=== PATIENT | male | born 1945 | race American Indian/Alaskan Native ===

== ENCOUNTER 2019-11-23 09:58 | Emergency (ER) | payer MEDICARE ==
[2019-11-23 10:05] VITALS: BP 164/84
--- NOTE | 2019-11-23 13:35 | Event Note ---
ED Screening Note Date of service: 11/23/19 Time: 13:34 ED Screening Note: 74-year-old male presents the ED stating that he found aorta score with positive on Wednesday presented with shortness of breath and chest pain This initial assessment/diagnostic orders/clinical plan/treatment(s) is/are sub ject to change based on patients health status, clinical progression and re- assessment by fellow clinical providers in the ED. Further treatment and workup at subsequent clinical providers discretion. Patient/guardian urged not to elope from the ED as their condition may be serious if not clinically assessed and managed. Initial orders include: COVID labs, chest x-ray, Main side eval
--- NOTE | 2019-11-23 14:46 | XRay Report ---
CHEST 2 VIEWS INDICATION: Short of breath. COMPARISON: None FINDINGS: Support devices: None. Heart: Within normal limits. Lungs/pleura: No acute air space or interstitial disease. No pneumothorax. Additional findings: None. IMPRESSION: No acute findings. Signer Name: Tomy Sevilla Jr, MD Signed: 11/23/2019 2:42 PM Workstation Name: [id number]
[2019-11-23 15:56] LABS: C-Reactive Protein 0.1 mg/dL (0.00-1.30)
[2019-11-23] MEDS ORDERED: SODIUM CHLORIDE 0.9% 1000 ML 1,000 ML IV ONE (17:13)
--- NOTE | 2019-11-23 17:16 | Emergency Department Report ---
ED General Adult HPI - General Chief complaint: Medical Clearance Stated complaint: COVID + Time Seen by Provider: 11/23/19 16:21 Source: patient Mode of arrival: Ambulatory Limitations: No Limitations - History of Present Illness Initial comments: Mr. Gorman is a 74 years old pleasant male with no significant past medical history according to his report. Patient presented to the ER stating that he has been tested positive for COVID-19 on Wednesday after 1 of his roommate tested positive. Patient stated that he was coughing at that time but denying any shortness of breath, fever or chills. Patient also denied any nausea, vomiting or diarrhea. - Related Data Allergies Allergy/AdvReac Type Severity Reaction Status Date / Time No Known Allergies Allergy Unverified 11/23/19 10:01 ED Review of Systems ROS: Stated complaint: COVID + Other details as noted in HPI Comment: All other systems reviewed and negative Constitutional: denies: chills, fever Respiratory: cough, shortness of breath. denies: orthopnea, SOB with exertion, SOB at rest, wheezing Cardiovascular: denies: chest pain, palpitations Gastrointestinal: denies: abdominal pain, nausea, vomiting, diarrhea, constipation, hematemesis, melena, hematochezia Musculoskeletal: denies: back pain Neurological: denies: headache, weakness, numbness, paresthesias, confusion ED Past Medical Hx - Past Medical History Previous Medical History?: No - Surgical History Past Surgical History?: No - Social History Smoking Status: Never Smoker Substance Use Type: None ED Physical Exam - General Limitations: No Limitations General appearance: alert, in no apparent distress - Head Head exam: Present: atraumatic, normocephalic, normal inspection - Eye Eye exam: Present: normal appearance - ENT ENT exam: Present: normal exam, normal orophraynx, mucous membranes moist - Neck Neck exam: Present: normal inspection, full ROM. Absent: tenderness, meningismus, lymphadenopathy, thyromegaly - Respiratory Respiratory exam: Present: normal lung sounds bilaterally - Cardiovascular Cardiovascular Exam: Present: regular rate, normal rhythm, normal heart sounds - GI/Abdominal GI/Abdominal exam: Present: soft, normal bowel sounds. Absent: distended, tenderness, guarding, rebound, rigid, organomegaly, mass, bruit, pulsatile mass, hernia - Back Exam Back exam: Present: normal inspection, full ROM. Absent: CVA tenderness (R), CVA tenderness (L) - Neurological Exam Neurological exam: Present: alert, oriented X3, CN II-XII intact. Absent: motor sensory deficit - Psychiatric Psychiatric exam: Present: normal mood - Skin Skin exam: Present: warm, intact, normal color ED Course Vital Signs 11/23/19 10:01 Temperature 98.4 F Pulse Rate 73 Respiratory 17 Rate Blood Pressure 164/84 O2 Sat by Pulse 96 Oximetry ED Medical Decision Making - Lab Data Result diagrams: 11/23/19 17:47 11/23/19 17:47 - Radiology Data Radiology results: report reviewed - Medical Decision Making Mr. Gorman is a 74 years old pleasant male with no significant past medical history according to his report. Patient presented to the ER stating that he has been tested positive for COVID-19 on Wednesday after 1 of his roommate tested positive. Patient stated that he was coughing at that time but denying any shortness of breath, fever or chills. Patient also denied any nausea, vomiting or diarrhea. Patient remained stable in the emergency room with a stable vital signs. Patient oxygen saturation remained 100% on room air. Labs reviewed and showed slightly elevated d-dimer. CTA chest is negative for PE or any other abnormalities. Patient advised to do a self quarantine and given instruction about COVID-19 and advised to follow-up with his primary care physician in the next 2 to 3 days and to return to the ER if he develop any new symptoms. Critical care attestation.: If time is entered above; I have spent that time in minutes in the direct care of this critically ill patient, excluding procedure time. ED Disposition Clinical Impression: COVID-19 Disposition: - TO HOME OR SELFCARE Is pt being admited?: No Condition: Stable Instructions: COVID-19 Referrals: PRIMARY CARE, [Primary Care Provider] - 3-5 Days
[2019-11-23 18:28] LABS: Basophils % (Auto) 0.7 % (0.0-1.8); Eosinophils # (Auto) 0.1 K/mm3 (0.0-0.4); Hematocrit 39.2 % (35.5-45.6); Hemoglobin 12.8 gm/dl (11.8-15.2); Lymphocytes # (Auto) 0.9 K/mm3 (1.2-5.4); Lymphocytes % (Auto) 31.1 % (13.4-35.0); Mean Corpuscular HGB Conc 33 % (32-34); Mean Corpuscular Volume 84 fl (84-94); Monocytes # (Auto) 0.4 K/mm3 (0.0-0.8); Monocytes % (Auto) 14.8 % (0.0-7.3); Platelet Count 155 K/mm3 (140-440); Red Blood Count 4.66 M/mm3 (3.65-5.03); Red Cell Distribution Width 16.4 % (13.2-15.2)
[2019-11-23 18:38] LABS: Alanine Aminotransferase 54 units/L (7-56); Albumin 3.8 g/dL (3.9-5); BUN/Creatinine Ratio 9; Blood Urea Nitrogen 8 mg/dL (9-20); Calcium 8.7 mg/dL (8.4-10.2); Hemolysis Index 4
[2019-11-23 18:40] LABS: INR 0.92 (0.87-1.13)
[2019-11-23 18:41] LABS: Partial Thromboplastin Time 25.7 Sec. (24.2-36.6)
[2019-11-23 19:03] LABS: Bilirubin,Direct < 0.2 mg/dL (0-0.2)
--- NOTE | 2019-11-23 20:57 | Cat Scan Report ---
CTA CHEST WITH IV CONTRAST INDICATION / CLINICAL INFORMATION: elevated d-dimer, SOB. TECHNIQUE: Axial CT images were obtained through the chest after injection of 100 mL Omnipaque 350 IV contrast. 3 plane MIP and/or 3D reconstructions were produced. All CT scans at this location are performed usin g CT dose reduction for DOMINGORA by means of automated exposure control. COMPARISON: None available. FINDINGS: PULMONARY ARTERIES: No pulmonary emboli. THORACIC AORTA: No significant abnormality. HEART: No significant abnormality. CORONARY ARTERIES: No significant calcification. PLEURA: No pleural effusion. No pneumothorax. LYMPH NODES: No significant adenopathy. LUNGS: No acute air space or interstitial disease. ADDITIONAL FINDINGS: There is a 1.3 cm nodule in the left lobe of the thyroid, statistically benign. UPPER ABDOMEN: No acute findings. SKELETAL STRUCTURES: No significant osseous abnormality. IMPRESSION: 1. No CT evidence for pulmonary embolism. 2. No acute findings. Signer Name: Lubna Mitchell MD Signed: 11/23/2019 8:52 PM Workstation Name: [id number]
== END 2019-11-23 21:45 | disposition home or self-care (01) ==
LOC: ED 09:58
DX: U07.1 COVID-19 (principal); R05 Cough
CPT/HCPCS: 36415; 71046; 71275; 80048; 80076; 82728; 82947; 83615; 84145; 85025; 85379; 85610; 85730; 86140; 96360; 96361; 99284; J7030; Q9967

== ENCOUNTER 2019-11-30 20:39 | Emergency (ER) | payer MEDICARE ==
[2019-11-30 20:58] VITALS: BP 143/78
== END 2019-11-30 21:30 | disposition left against medical advice (07) ==
LOC: ED 20:39
DX: U07.1 COVID-19 (principal); Z53.21 Procedure and treatment not carried out due to patient leaving prior to being seen by health care provider

== ENCOUNTER 2019-12-01 04:43 | Emergency (ER) | payer MEDICARE ==
[2019-12-01 04:56] VITALS: BP 138/76
--- NOTE | 2019-12-01 08:20 | Emergency Department Report ---
ED Medical Clearance HPI - General Chief complaint: Medical Clearance Stated complaint: MEDICAL CLEARANCE Time Seen by Provider: 12/01/19 08:16 Source: patient Mode of arrival: Ambulatory - History of Present Illness Initial comments: 74-year-old -[place] male presents to the emergency room here for checkup. Patient reports that he tested positive for COVID-19 2 weeks ago and is here to get a checkup. Patient is brought in by his correction. Patient denies any shortness of breath no cough no fever no nausea no vomiting no diarrhea abdominal pain. Patient states he feels much better. Patient denies any past medical history of diabetes hypertension or cardiac disease. Reason for Medical Clearance: medical condition Associated Symptoms: denies other symptoms. denies: chest pain, shortness of breath, palpitations, cough, fever/chills, headaches, weakness Treatments Prior to Arrival: none Allergies/Adverse reactions: Allergies Allergy/AdvReac Type Severity Reaction Status Date / Time No Known Allergies Allergy Unverified 11/23/19 10:01 ED Review of Systems ROS: Stated complaint: MEDICAL CLEARANCE Other details as noted in HPI Comment: All other systems reviewed and negative ED Past Medical Hx - Past Medical History Previous Medical History?: No - Surgical History Past Surgical History?: No - Social History Smoking Status: Current Every Day Smoker Substance Use Type: None ED Physical Exam - General Limitations: No Limitations General appearance: alert, in no apparent distress - Head Head exam: Present: atraumatic, normocephalic - Eye Eye exam: Present: normal appearance - ENT ENT exam: Present: mucous membranes moist - Neck Neck exam: Present: normal inspection, full ROM - Respiratory Respiratory exam: Present: normal lung sounds bilaterally. Absent: respiratory distress - Cardiovascular Cardiovascular Exam: Present: regular rate, normal rhythm. Absent: systolic murmur, diastolic murmur, rubs, gallop - GI/Abdominal GI/Abdominal exam: Present: soft, normal bowel sounds. Absent: distended, tenderness - Back Exam Back exam: Present: normal inspection, full ROM - Neurological Exam Neurological exam: Present: alert, normal gait - Psychiatric Psychiatric exam: Present: normal affect, normal mood - Skin Skin exam: Present: warm, dry, intact, normal color. Absent: rash ED Course Vital Signs 12/01/19 12/01/19 04:50 04:54 Temperature 98.6 F 98.6 F Pulse Rate 88 Respiratory 20 20 Rate Blood Pressure 138/76 O2 Sat by Pulse 95 Oximetry ED Medical Decision Making - Medical Decision Making 74-year-old -[place] male presents to the emergency room here for checkup. Patient reports that he tested positive for COVID-19 2 weeks ago and is here to get a checkup. Patient is brought in by his correction. Patient denies any shortness of breath no cough no fever no nausea no vomiting no diarrhea abdominal pain. Patient states he feels much better. Patient denies any past medical history of diabetes hypertension or cardiac disease. Patient denies any acute symptoms. Exam was within normal limits. Signs are within normal limits. Patient will be able to be discharged back to his correction. Instructed to follow-up with a primary care provider. ED Disposition Clinical Impression: Worried well Disposition: DC-01 TO HOME OR SELFCARE Is pt being admited?: No Does the pt Need Aspirin: No Condition: Stable Additional Instructions: Patient has a normal examination vital signs are stable. Patient is instructed to follow back up at his correction and follow-up with a primary care provider. I have listed information below for his convenience. Referrals: MCKENZIE LUO MD [Primary Care Provider] - 3-5 Days ISRAEL TOVAR MD [Staff Physician] - 3-5 Days
== END 2019-12-01 08:45 | disposition home or self-care (01) ==
LOC: ED 04:43
DX: U07.1 COVID-19 (principal); F17.200 Nicotine dependence, unspecified, uncomplicated; Z71.1 Person with feared health complaint in whom no diagnosis is made

== ENCOUNTER 2020-06-22 18:31 | Inpatient (IN) | payer MEDICARE ==
[2020-06-22] MEDS ORDERED: SODIUM CHLORIDE 0.9% 1000 ML 1,000 ML IV ONE (18:46)
[2020-06-22] MEDS ORDERED: levETIRAcetam 1000 MG/NS 0.75% 1,000 MG/100 ML BAG IV ONE (18:47)
--- NOTE | 2020-06-22 18:57 | Emergency Department Report ---
ED Seizure HPI - General Stated Complaint: SZ TYPE ACTIVITY Time Seen by Provider: 06/22/20 18:46 Source: patient, EMS - History of Present Illness Initial Comments: Patient is 74 years old male with no significant past medical history except for schizophrenia. Patient lives in a intermediate. Patient brought to the emergency room via EMS after patient witnessed to have possible seizure. EMS stated that patient was at the grocery store when he started having shaking and he passed out. Upon arrival to the ER patient is alert however still confused. Patient stated that he never had any history of seizure before. Sister also confirmed that he know him for more than 42 years and he never had any history of seizure before. Patient previous record here in the hospital did not show any evidence of seizure before. Patient denied any fever or chills. No headache, neck pain, focal weakness numbness or tingling sensation. Patient also denied any chest pain, palpitation or shortness of breath. MD Complaint: possible seizure, loss of consciousness, shaking -: Sudden, minutes(s) Description of Episode: loss of consciousness, tonic-clonic movement, post-event confusion Witnessed:: Yes Trauma: No Seizure History: none Place: street/outdoors Possible Precipitating Event: none Associated Symptoms: denies other symptoms Treatments Prior to Arrival: none - Related Data Home Medications Medication Instructions Recorded Confirmed Last Taken Memantine [Namenda] 10 mg PO 06/22/20 Unknown Sertraline [Zoloft] 50 mg PO QDAY 06/22/20 06/22/20 Unknown amLODIPine [Norvasc] 5 mg PO DAILY 06/22/20 06/22/20 Unknown chlorproMAZINE [Thorazine] 25 mg PO 06/22/20 Unknown Allergies Allergy/AdvReac Type Severity Reaction Status Date / Time No Known Allergies Allergy Unverified 11/23/19 10:01 ED Review of Systems ROS: Stated complaint: SZ TYPE ACTIVITY Other details as noted in HPI Comment: All other systems reviewed and negative Constitutional: denies: chills, fever Respiratory: denies: cough, orthopnea, shortness of breath, SOB with exertion, SOB at rest Cardiovascular: denies: chest pain, palpitations Gastrointestinal: denies: abdominal pain, nausea, vomiting, diarrhea Musculoskeletal: denies: back pain Neurological: confusion. denies: headache, weakness, numbness, paresthesias, abnormal gait Psychiatric: denies: anxiety, depression, auditory hallucinations, visual hallucinations, homicidal thoughts, suicidal thoughts ED Past Medical Hx - Social History Smoking Status: Current Every Day Smoker Substance Use Type: None - Medications Home Medications: Home Medications Medication Instructions Recorded Confirmed Last Taken Type Memantine [Namenda] 10 mg PO 06/22/20 Unknown History Sertraline [Zoloft] 50 mg PO QDAY 06/22/20 06/22/20 Unknown History amLODIPine [Norvasc] 5 mg PO DAILY 06/22/20 06/22/20 Unknown History chlorproMAZINE [Thorazine] 25 mg PO 06/22/20 Unknown History ED Physical Exam - General General appearance: alert, in no apparent distress - Head Head exam: Present: atraumatic, normocephalic, normal inspection - Eye Eye exam: Present: normal appearance, PERRL - ENT ENT exam: Present: normal exam, normal orophraynx, mucous membranes moist - Neck Neck exam: Present: normal inspection, full ROM. Absent: tenderness, meningismus - Respiratory Respiratory exam: Present: normal lung sounds bilaterally - Cardiovascular Cardiovascular Exam: Present: regular rate, normal rhythm, normal heart sounds - GI/Abdominal GI/Abdominal exam: Present: soft, normal bowel sounds. Absent: distended, tenderness, guarding, rebound, rigid, organomegaly, mass, bruit, pulsatile mass, hernia - Extremities Exam Extremities exam: Present: normal inspection, full ROM, normal capillary refill. Absent: tenderness, pedal edema, joint swelling, calf tenderness - Back Exam Back exam: Present: normal inspection, full ROM. Absent: CVA tenderness (R), CVA tenderness (L) - Neurological Exam Neurological exam: Present: alert, oriented X3, CN II-XII intact, normal gait, reflexes normal. Absent: motor sensory deficit - Psychiatric Psychiatric exam: Present: normal mood - Skin Skin exam: Present: warm, intact, normal color ED Course Vital Signs 06/22/20 06/22/20 06/22/20 19:00 19:05 19:22 Temperature 98.3 F Pulse Rate 77 79 Respiratory 25 H 20 22 Rate Blood Pressure 142/71 Blood Pressure 142/71 [Left] O2 Sat by Pulse 95 97 Oximetry 06/22/20 20:00 Temperature Pulse Rate 80 Respiratory 15 Rate Blood Pressure 141/73 Blood Pressure [Left] O2 Sat by Pulse 95 Oximetry ED Medical Decision Making - Lab Data Result diagrams: 06/22/20 18:51 06/22/20 18:51 - EKG Data -: EKG Interpreted by Me EKG shows normal: sinus rhythm Rate: normal - EKG Data Interpretation: no acute changes - Radiology Data Radiology results: report reviewed - Medical Decision Making Patient is 74 years old male with no significant past medical history except for schizophrenia. Patient lives in a intermediate. Patient brought to the emergency room via EMS after patient witnessed to have possible seizure. EMS stated that patient was at the grocery store when he started having shaking and he passed out. Upon arrival to the ER patient is alert however still confused. Patient stated that he never had any history of seizure before. Sister also confirmed that he know him for more than 42 years and he never had any history of seizure before. Patient previous record here in the hospital did not show any evidence of seizure before. Patient denied any fever or chills. No headache, neck pain, focal weakness numbness or tingling sensation. Patient also denied any chest pain, palpitation or shortness of breath. Patient received Keppra 1 g IV. No seizure activity observed in the ER. Labs r eviewed and is unremarkable. CT brain is negative for acute finding. I discussed the patient with Dr. Ennis, he agreed to admit the patient to medical service for further management. Critical care attestation.: If time is entered above; I have spent that time in minutes in the direct care of this critically ill patient, excluding procedure time. ED Disposition Clinical Impression: New onset seizure, Altered mental status Disposition: DC-09 OP ADMIT IP TO THIS HOSP Is pt being admited?: Yes Condition: Stable
[2020-06-22 19:40] LABS: Alanine Aminotransferase 14 units/L (7-56); Albumin 4.1 g/dL (3.9-5)
[2020-06-22 19:48] LABS: Basophils # (Auto) 0.1 K/mm3 (0.0-0.1); Basophils % (Auto) 0.9 % (0.0-1.8); Eosinophils # (Auto) 0.1 K/mm3 (0.0-0.4); Hematocrit 42.1 % (35.5-45.6); Lymphocytes # (Auto) 1.3 K/mm3 (1.2-5.4); Lymphocytes % (Auto) 18.1 % (13.4-35.0); Mean Corpuscular HGB Conc 33 % (32-34); Mean Corpuscular Volume 87 fl (84-94); Monocytes # (Auto) 0.8 K/mm3 (0.0-0.8); Monocytes % (Auto) 10.7 % (0.0-7.3); Platelet Count 199 K/mm3 (140-440); Red Blood Count 4.86 M/mm3 (3.65-5.03)
[2020-06-22 19:56] LABS: INR 0.89 (0.87-1.13)
[2020-06-22 19:57] LABS: Bilirubin,Direct < 0.2 mg/dL (0-0.2)
[2020-06-22 20:09] LABS: BUN/Creatinine Ratio 13; Blood Urea Nitrogen 14 mg/dL (9-20); Hemolysis Index 65
--- NOTE | 2020-06-22 21:52 | Cat Scan Report ---
CT HEAD WITHOUT CONTRAST INDICATION / CLINICAL INFORMATION: Syncope. TECHNIQUE: All CT scans at this location are performed using CT dose reduction for ALARA by means of automated e xposure control. COMPARISON: None available. FINDINGS: HEMORRHAGE: No evidence of intracranial hemorrhage or extra-axial fluid collection. EXTRA-AXIAL SPACES: Cortical sulci and sylvian fissures are enlarged reflecting a degree of parenchym al volume loss which is greater than expected for the patient's age 74 years. Basilar cisterns have a n unremarkable appearance. VENTRICULAR SYSTEM: The third and lateral ventricles are enlarged out of proportion to the cortical s ulci. This probably reflects the presence of central greater than cortical atrophy. CEREBRAL PARENCHYMA: Extensive periventricular and deep white matter lucency is observed. This is pro bably secondary to advanced microvascular ischemic change. There is no indication of recent infarctio n. No areas of encephalomalacia are identified. MIDLINE SHIFT OR HERNIATION: There is no mass effect. CEREBELLUM / BRAINSTEM: Brainstem and cerebellum have an unremarkable appearance. MIDLINE STRUCTURES:No abnormalities of the pituitary gland or pineal region are observed INTRACRANIAL VESSELS:Calcified atherosclerotic plaque is present along the course of the cavernous se gments of both internal carotid arteries. ORBITS: Patient is status post remote medial wall blowout fracture of the right orbit. There is defor mity of the right lamina papyracea. Visualized portions of the orbits have an unremarkable appearance . SOFT TISSUES of HEAD: No significant abnormality. CALVARIUM: Evaluation of bone windows reveals no abnormalities. PARANASAL SINUSES / MASTOID AIR CELLS: Paranasal sinuses are free from inflammatory mucosal disease. Mastoid air cells are normally pneumatized. IMPRESSION: 1. Central greater than cortical parenchymal volume loss and advanced microvascular ischemic change. 2. No acute intracranial abnormality. Signer Name: Cesar Jones MD Signed: 06/22/2020 9:48 PM Workstation Name: [id number]
--- NOTE | 2020-06-22 23:22 | History and Physical Report ---
History of Present Illness Date of examination: 06/22/20 Date of admission: 06/22/20 Chief complaint: New onset seizure History of present illness: Patient is 74 years old male with no significant past medical history except for schizophrenia. Patient lives in a fpc. Patient brought to the emergency room via EMS after patient witnessed to have possible seizure. EMS stated that patient was at the grocery store when he started having shaking and he passed out. Upon arrival to the ER patient is alert however still confused. Patient stated that he never had any history of seizure before. Sister also confirmed that he know him for more than 42 years and he never had any history of seizure before. Patient previous record here in the hospital did not show any evidence of seizure before. Patient denied any fever or chills. No headache, neck pain, focal weakness numbness or tingling sensation. Patient also denied any chest pain, palpitation or shortness of breath. ED work-up shows WBC 7.1, hemoglobin 14.0, platelets 199, sodium 132, potassium 4.2 Glucose 99 magnesium 2.2, calcium 9.0, creatinine 1.1. Patient seen in ED at bedside. Patient is sleeping at the time of assessment with easy to arouse. Patient came to ED with chief complaint of new onset seizures. Per patient history patient has no history of seizures. CT of the head is done no acute finding. Neurologist is consulted. Patient started on Keppra. Reviewed lab values, medical record, and vital signs. No acute finding. Past History Past Medical History: hypertension, hyperlipidemia, other (dementia) Past Surgical History: No surgical history Social history: no significant social history Family history: hypertension Medications and Allergies Allergies Allergy/AdvReac Type Severity Reaction Status Date / Time No Known Allergies Allergy Unverified 11/23/19 10:01 Home Medications Medication Instructions Recorded Confirmed Last Taken Type Memantine [Namenda] 10 mg PO 06/22/20 Unknown History Sertraline [Zoloft] 50 mg PO QDAY 06/22/20 06/22/20 Unknown History amLODIPine [Norvasc] 5 mg PO DAILY 06/22/20 06/22/20 Unknown History chlorproMAZINE [Thorazine] 25 mg PO 06/22/20 Unknown History Review of Systems Constitutional: fatigue, weakness Ears, nose, mouth and throat: no epistaxis Cardiovascular: no lightheadedness Respiratory: no congestion Gastrointestinal: no melena Rectal: no pain Musculoskeletal: no neck stiffness Integumentary: no rash, no pruritis Neurological: seizures Psychiatric: anxiety Hematologic/Lymphatic: no easy bruising Allergic/Immunologic: no urticaria Exam - Constitutional Vitals: Temp Pulse Resp BP Pulse Ox 98.3 F 80 15 141/73 95 06/22/20 19:05 06/22/20 20:00 06/22/20 20:00 06/22/20 20:00 06/22/20 20:00 General appearance: Present: no acute distress, well-nourished - EENT Eyes: Present: PERRL ENT: hearing intact, clear oral mucosa - Neck Neck: Present: supple, normal ROM - Respiratory Respiratory effort: normal Respiratory: bilateral: CTA - Cardiovascular Heart rate: 77 Heart Sounds: Present: S1 & S2. Absent: rub, click - Extremities Extremities: pulses symmetrical, No edema Peripheral Pulses: within normal limits - Abdominal General gastrointestinal: Present: soft, non-tender, non-distended, normal bowel sounds Male genitourinary: Present: normal - Integumentary Integumentary: Present: clear, warm, dry - Musculoskeletal Musculoskeletal: gait normal, strength equal bilaterally - Psychiatric Psychiatric: appropriate mood/affect, intact judgment & insight - Neurologic Neurologic: CNII-XII intact, moves all extremities - Allied Health Allied health notes reviewed: nursing HEART Score - HEART Score Troponin: Troponin T < 0.010 ng/mL (0.00-0.029) 06/22/20 18:51 Results - Labs CBC & Chem 7: 06/22/20 18:51 06/22/20 18:51 Labs: Abnormal lab results 06/22/20 06/22/20 06/22/20 Range/Units 18:51 18:51 18:51 [place] % (Auto) 10.7 H (0.0-7.3) % PT 11.8 L (12.2-14.9) Sec. Sodium 132 L (137-145) mmol/L Carbon Dioxide 19 L (22-30) mmol/L Assessment and Plan - Patient Problems (1) New onset seizure Current Visit: Yes Status: Acute Plan to address problem: ? cause Continue keppra (2) Altered mental status Current Visit: Yes Status: Acute Plan to address problem: CT of the head -no acute finding Pt has hx of dementia-resumed home psych drug (3) Hyponatremia Current Visit: Yes Status: Acute Plan to address problem: ? cause Gently IV hydration with sodium chloride Monitor sodium levels.
[2020-06-22] MEDS ORDERED: amLODIPine 5 MG TAB PO ONE (23:36)
[2020-06-22] MEDS ORDERED: traMADol 50 MG TAB PO PRN (23:40)
[2020-06-22] MEDS ORDERED: ALUM-MAG HYDROXIDE-SIMETHICONE 200-200-20MG/5ML ORAL LIQD 30 ML PO PRN (23:40)
[2020-06-22] MEDS ORDERED: SENNOSIDES ORAL LIQD 8.8 MG/5 ML ORAL LIQD PO PRN (23:40)
[2020-06-22] MEDS ORDERED: traZODone 50 MG TAB PO PRN (23:40)
[2020-06-23 03:30] LABS: Bilirubin,Urine NEG (Negative); Blood,Urine NEG (Negative); Color,Urine Yellow (Yellow); Mucus,Urine FEW /HPF; Protein,Urine <15 mg/dL mg/dL (Negative); Urobilinogen,Urine < 2.0 mg/dL (<2.0)
[2020-06-23 03:39] LABS: Amphetamine Screen,Urine PRESUMPTIVE NEGATIVE; Benzodiazepines Screen,Urine PRESUMPTIVE NEGATIVE; Cannabinoid Screen,Urine PRESUMPTIVE NEGATIVE; Cocaine Screen,Urine PRESUMPTIVE NEGATIVE; Methadone Screen,Urine PRESUMPTIVE NEGATIVE; Opiate Screen,Urine PRESUMPTIVE NEGATIVE
[2020-06-23] MEDS ORDERED: LORazepam 2 MG/ML VIAL IV PRN (04:28)
[2020-06-23 04:40] LABS: Basophils % (Auto) 0.7 % (0.0-1.8); Eosinophils # (Auto) 0.1 K/mm3 (0.0-0.4); Eosinophils % (Auto) 1.4 % (0.0-4.3); Hematocrit 39.2 % (35.5-45.6); Hemoglobin 13.1 gm/dl (11.8-15.2); Lymphocytes # (Auto) 1.2 K/mm3 (1.2-5.4); Lymphocytes % (Auto) 18.9 % (13.4-35.0); Mean Corpuscular HGB Conc 33 % (32-34); Mean Corpuscular Volume 86 fl (84-94); Monocytes # (Auto) 0.6 K/mm3 (0.0-0.8); Monocytes % (Auto) 10.2 % (0.0-7.3); Platelet Count 186 K/mm3 (140-440); Red Blood Count 4.58 M/mm3 (3.65-5.03); Red Cell Distribution Width 14.2 % (13.2-15.2)
[2020-06-23 05:07] LABS: BUN/Creatinine Ratio 11; Blood Urea Nitrogen 13 mg/dL (9-20); Calcium 8.9 mg/dL (8.4-10.2); Hemolysis Index 2
[2020-06-23] MEDS: amLODIPine 5 MG TAB PO SCH (11:14)
[2020-06-23] MEDS: SERTRALINE 50 MG TAB PO SCH (11:17)
[2020-06-23] MEDS: MEMANTINE 10 MG TAB PO SCH ×2 (11:17→22:03)
[2020-06-23] MEDS: levETIRAcetam 500 MG in DEXTROSE 5% IN WATER 100 ML IV SCH ×2 (11:20→22:03)
--- NOTE | 2020-06-23 13:40 | Progress Note ---
Assessment and Plan - Patient Problems (1) Acute encephalopathy Current Visit: Yes Status: Acute Plan to address problem: Secondary to seizures (2) New onset seizure Current Visit: Yes Status: Acute Plan to address problem: IV Keppra for now to be transitioned to oral Keppra (3) Hyponatremia Current Visit: Yes Status: Acute Plan to address problem: IV fluids for now (4) DVT prophylaxis Current Visit: Yes Status: Acute Plan to address problem: On heparin and GI prophylaxis Subjective Date of service: 06/23/20 Principal diagnosis: Acute encephalopathy, seizure disorder Interval history: Patient is 74 years old male with no significant past medical history except for schizophrenia. Patient lives in a [facility]. Patient brought to the emergency room via EMS after patient witnessed to have possible seizure. EMS stated that patient was at the grocery store when he started having shaking and he passed out. Upon arrival to the ER patient is alert however still confused. Patient stated that he never had any history of seizure before. Sister also confirmed that he know him for more than 42 years and he never had any history of seizure before. Patient previous record here in the hospital did not show any evidence of seizure before. Patient denied any fever or chills. No headache, neck pain, focal weakness numbness or tingling sensation. Patient also denied any chest pain, palpitation or shortness of breath. ED work-up shows WBC 7.1, hemoglobin 14.0, platelets 199, sodium 132, potassium 4.2 Glucose 99 magnesium 2.2, calcium 9.0, creatinine 1.1. Patient seen in ED at bedside. Patient is sleeping at the time of assessment with easy to arouse. Patient came to ED with chief complaint of new onset seizures. Per patient history patient has no history of seizures. CT of the head is done no acute finding. Neurologist is consulted. Patient started on Keppra. Reviewed lab values, medical record, and vital signs. No acute finding. 06/23/2020 Patient is still postictal and lethargic Not alert and oriented Objective - Constitutional Vitals: Vital Signs - 12hr 06/23/20 06/23/20 06/23/20 02:00 02:30 04:09 Temperature 98.3 F Pulse Rate 63 69 67 Respiratory 10 L 13 18 Rate Blood Pressure 124/67 106/61 131/71 Blood Pressure [Left] O2 Sat by Pulse 92 97 96 Oximetry 06/23/20 06/23/20 09:13 11:14 Temperature 98.3 F Pulse Rate 69 85 Respiratory 18 Rate Blood Pressure Blood Pressure 106/62 [Left] O2 Sat by Pulse 97 Oximetry General appearance: Present: no acute distress, well-nourished - EENT Eyes: PERRL, EOM intact ENT: hearing intact, clear oral mucosa Ears: bilateral: normal - Neck Neck: supple, normal ROM - Respiratory Respiratory effort: normal Respiratory: bilateral: CTA - Breasts Breasts: normal - Cardiovascular Rhythm: regular Heart Sounds: Present: S1 & S2. Absent: gallop, rub Extremities: pulses intact, No edema, normal color, Full ROM - Gastrointestinal General gastrointestinal: Present: soft, non-tender, non-distended, normal bowel sounds - Genitourinary Male genitourinary: normal - Integumentary Integumentary: clear, warm, dry - Musculoskeletal Musculoskeletal: 1, strength equal bilaterally - Neurologic Neurologic: moves all extremities, other (Altered sensorium) - Psychiatric Psychiatric: other (Altered sensorium) - Allied health notes Allied health notes reviewed: nursing, case management - Labs CBC & Chem 7: 06/23/20 03:57 06/23/20 03:57 Labs: Abnormal lab results 06/22/20 06/22/20 06/22/20 Range/Units 18:51 18:51 18:51 [place] % (Auto) 10.7 H (0.0-7.3) % PT 11.8 L (12.2-14.9) Sec. Sodium 132 L (137-145) mmol/L Carbon Dioxide 19 L (22-30) mmol/L 06/23/20 Range/Units 03:57 [place] % (Auto) 10.2 H (0.0-7.3) % PT (12.2-14.9) Sec. Sodium (137-145) mmol/L Carbon Dioxide (22-30) mmol/L HEART Score - HEART Score Troponin: Troponin T < 0.010 ng/mL (0.00-0.029) 06/22/20 18:51
--- NOTE | 2020-06-23 14:02 | Electrocardiograph Report ---
[facility] Test Date: 2020-06-22 Test Time: 20:10:17 Pat Name: KIRSTEN TAM Department: Room: A470 1 Gender: M Kitchen Food Server: : 1945 Requested By: EMIL NGUYEN Order Number: [id number] Reading MD: Matthew Bell Measurements Intervals [place] Rate: 75 P: 57 [place]: 154 QRS: 8 QRSD: 90 T: -17 QT: 383 QTc: 427 Interpretive Statements Sinus rhythm Borderline ST elevation, lateral leads No previous ECG available for comparison Electronically Signed On 06-23-2020 11:02:15 PDT by Matthew Bell
[2020-06-24] MEDS: SODIUM CHLORIDE 0.9% 1000 ML 1,000 ML IV SCH (00:46)
[2020-06-24] MEDS: levETIRAcetam 500 MG in DEXTROSE 5% IN WATER 100 ML IV SCH (09:44)
[2020-06-24] MEDS: SERTRALINE 50 MG TAB PO SCH (09:45)
[2020-06-24] MEDS: amLODIPine 5 MG TAB PO SCH (09:45)
[2020-06-24] MEDS: MEMANTINE 10 MG TAB PO SCH ×2 (09:45→21:34)
--- NOTE | 2020-06-24 11:30 | Progress Note ---
Assessment and Plan - Patient Problems (1) Acute encephalopathy Current Visit: Yes Status: Acute Plan to address problem: Secondary to seizures (2) DVT prophylaxis Current Visit: Yes Status: Acute Plan to address problem: On heparin and GI prophylaxis (3) Hyponatremia Current Visit: Yes Status: Acute Plan to address problem: IV fluids for now (4) New onset seizure Current Visit: Yes Status: Acute Plan to address problem: IV Keppra for now to be transitioned to oral Keppra (5) Discharge planning issues Current Visit: Yes Status: Acute Plan to address problem: Patient is medically cleared for discharge Placement issues Case management to be informed Subjective Date of service: 06/24/20 Principal diagnosis: Acute encephalopathy, new onset seizures Interval history: Patient is 74 years old male with no significant past medical history except for schizophrenia. Patient lives in a [facility]. Patient brought to the emergency room via EMS after patient witnessed to have possible seizure. EMS stated that patient was at the grocery store when he started having shaking and he passed out. Upon arrival to the ER patient is alert however still confused. Patient stated that he never had any history of seizure before. Sister also confirmed that he know him for more than 42 years and he never had any history of seizure before. Patient previous record here in the hospital did not show any evidence of seizure before. Patient denied any fever or chills. No headache, neck pain, focal weakness numbness or tingling sensation. Patient also denied any chest pain, palpitation or shortness of breath. ED work-up shows WBC 7.1, hemoglobin 14.0, platelets 199, sodium 132, potassium 4.2 Glucose 99 magnesium 2.2, calcium 9.0, creatinine 1.1. Patient seen in ED at bedside. Patient is sleeping at the time of assessment with easy to arouse. Patient came to ED with chief complaint of new onset seizures. Per patient history patient has no history of seizures. CT of the head is done no acute finding. Neurologist is consulted. Patient started on Keppra. Reviewed lab values, medical record, and vital signs. No acute finding. 06/23/2020 Patient is still postictal and lethargic Not alert and oriented 06/24/2020 Patient alert and oriented Patient debilitated Physical therapy initiated Talked with sister who wants usp placement Objective - Constitutional Vitals: Vital Signs - 12hr 06/23/20 06/24/2006/24/21 23:30 03:12 08:05 Temperature 98.0 F 97.9 F Pulse Rate 76 70 78 Respiratory 16 16 Rate Blood Pressure 158/64 134/59 O2 Sat by Pulse 96 96 Oximetry 06/24/20 06/24/20 06/24/20 08:12 09:45 10:00 Temperature 98.7 F Pulse Rate 76 76 Respiratory 18 Rate Blood Pressure 138/62 138/62 O2 Sat by Pulse 92 Oximetry General appearance: Present: no acute distress, well-nourished - EENT Eyes: PERRL, EOM intact ENT: hearing intact, clear oral mucosa Ears: bilateral: normal - Neck Neck: supple, normal ROM - Respiratory Respiratory effort: normal Respiratory: bilateral: CTA - Breasts Breasts: normal - Cardiovascular Heart rate: 78 Rhythm: regular Heart Sounds: Present: S1 & S2. Absent: gallop, rub Extremities: pulses intact, No edema, normal color, Full ROM - Gastrointestinal General gastrointestinal: Present: soft, non-tender, non-distended, normal bowel sounds - Genitourinary Male genitourinary: normal - Integumentary Integumentary: clear, warm, dry - Musculoskeletal Musculoskeletal: 1, strength equal bilaterally - Neurologic Neurologic: moves all extremities - Psychiatric Psychiatric: memory intact, appropriate mood/affect, intact judgment & insight - Labs CBC & Chem 7: 06/23/20 03:57 06/23/20 03:57 HEART Score - HEART Score Troponin: Troponin T < 0.010 ng/mL (0.00-0.029) 06/22/20 18:51
[2020-06-24] MEDS: HEPARIN 5,000 UNIT/1 ML VIAL SUB-Q SCH ×2 (12:29→21:34)
--- NOTE | 2020-06-24 17:50 | Consultation ---
History of Present Illness Consult date: 06/24/20 Reason for Consult: Seizure Chief complaint: Seizures History of present illness: 74 yo female with htn, hld, schizophrenia p/w seizure events where patient noticed the "shaking" prior to change in consciousness. No known hx of seizure d/o. Past History Past Medical History: hypertension, hyperlipidemia, other (dementia) Past Surgical History: No surgical history Social history: no significant social history Family history: hypertension Medications and Allergies Allergies Allergy/AdvReac Type Severity Reaction Status Date / Time No Known Allergies Allergy Unverified 11/23/19 10:01 Home Medications Medication Instructions Recorded Confirmed Last Taken Type Memantine [Namenda] 10 mg PO 06/22/20 Unknown History Sertraline [Zoloft] 50 mg PO QDAY 06/22/20 06/22/20 Unknown History amLODIPine [Norvasc] 5 mg PO DAILY 06/22/20 06/22/20 Unknown History chlorproMAZINE [Thorazine] 25 mg PO 06/22/20 Unknown History Active Meds: Active Medications Al Hydrox/Mg Hydrox/Simethicone (Alum-Mag Hydroxide-Simethicone 745-764-58pa/5ml Oral Liqd 30 Ml) 30 ml PO Q4H PRN PRN Reason: Indigestion Amlodipine Besylate (Amlodipine 5 Mg Tab) 5 mg PO DAILY [facility] Last Admin: 06/24/20 09:45 Dose: 5 mg Documented by: Heparin Sodium (Porcine) (Heparin 5,000 Unit/1 Ml Vial) 5,000 unit SUB-Q Q12HR MIGUEL Last Admin: 06/24/20 12:29 Dose: 5,000 unit Documented by: Sodium Chloride (Nacl 0.9% 1000 Ml) 1,000 mls @ 42 mls/hr IV DIRECT MIGUEL Last Admin: 06/24/20 00:46 Dose: 42 mls/hr Documented by: Levetiracetam (Levetiracetam 500 Mg Tab) 750 mg PO BID MIGUEL Lorazepam (Lorazepam 2 Mg/Ml Vial) 2 mg IV Q4H PRN PRN Reason: Seizures Memantine (Memantine 10 Mg Tab) 10 mg PO Q12HR [facility] Last Admin: 06/24/20 09:45 Dose: 10 mg Documented by: Senna (Sennosides Oral Liqd 8.8 Mg/5 Ml Oral Liqd) 17.6 mg PO Q12HR PRN PRN Reason: Laxative Effect Sertraline HCl (Sertraline 50 Mg Tab) 50 mg PO QDAY MIGUEL Last Admin: 06/24/20 09:45 Dose: 50 mg Documented by: Tramadol HCl (Tramadol 50 Mg Tab) 25 mg PO Q4H PRN PRN Reason: Pain, Moderate (4-6) Trazodone HCl (Trazodone 50 Mg Tab) 50 mg PO QHS PRN PRN Reason: Insomnia Physical Examination - Vital Signs Vital Signs: Vital Signs Pulse Resp BP Pulse Ox 77 25 H 142/71 95 06/22/20 19:00 06/22/20 19:00 06/22/20 19:00 06/22/20 19:00 - Physical Exam Narrative exam: Teleneurology not available today. Results - Laboratory Findings CBC and BMP: 06/23/20 03:57 06/23/20 03:57 Abnormal Lab Findings: Abnormal Labs 06/22/20 06/22/20 06/22/20 18:51 18:51 18:51 [place] % (Auto) 10.7 H PT 11.8 L Sodium 132 L Carbon Dioxide 19 L 06/23/20 03:57 [place] % (Auto) 10.2 H PT Sodium Carbon Dioxide Assessment and Plan 74 yo male with htn, hld, schizophrenia who presents with new onset seizure in the setting of mild hyponatremia. 1. Seizures - eeg pending; ordered mr brain w/ wo contrast (if no contraindications); if abnormal EEG or MR Brain, recommend Keppra 500 mg po bid, if ok with psychiatry. Seizure precautions. Alexandru Koch MD Neurology
[2020-06-24] MEDS: levETIRAcetam 500 MG TAB PO SCH (21:33)
--- NOTE | 2020-06-25 10:43 | Progress Note ---
Assessment and Plan Assessment and plan: -- New onset seizure Current Visit: Yes Status: Acute Plan to address problem: IV Keppra for now to be transitioned to oral Keppra Seizure precautions Neurology following Follow neuro work-up, MRI and EEG -- Acute encephalopathy Current Visit: Yes Status: Acute Plan to address problem: Secondary to seizures Mild improvement, patient is more alert and awake Follow MRI. PT OT --Hyponatremia Current Visit: Yes Status: Acute Plan to address problem: Significant improvement , continue IV fluids Follow electrolytes -- DVT prophylaxis Current Visit: Yes Status: Acute Plan to address problem: On heparin and GI prophylaxis -- Discharge planning issues Current Visit: Yes Status: Acute Plan to address problem: Patient is medically cleared for discharge Placement issues Case management to be informed PT recommend subacute rehab placement OT recommend acute rehab placement Follow neuro work-up, optimize medications Discharge when medically stable and cleared by neurology Plan of care reviewed with the patient and his nurse I also discussed with the case management 06/25/2020; follow neuro work-up Seizure precautions PT/OT recommend subacute/acute rehab placement When medically stable History Interval history: I have seen and examined the patient at the bedside Patient's chart and medications reviewed Patient was admitted with acute seizure disorder Seizure work-up is in progress Scheduled for MRI today No new episodes of seizure Alert and awake responding appropriately Vital signs noted Hospitalist Physical - Constitutional Vitals: Temp Pulse Resp BP Pulse Ox 99.1 F 59 L 20 139/57 92 06/25/20 07:59 06/25/20 07:59 06/25/20 09:21 06/25/20 07:59 06/25/20 07:59 General appearance: Present: no acute distress, well-nourished - EENT Eyes: Present: PERRL, EOM intact - Neck Neck: Present: supple, normal ROM - Respiratory Respiratory effort: normal Respiratory: bilateral: diminished, rhonchi, negative: rales, wheezing - Cardiovascular Rhythm: regular Heart Sounds: Present: S1 & S2 - Extremities Extremities: no ischemia, No edema - Abdominal General gastrointestinal: soft, non-tender, non-distended, normal bowel sounds - Integumentary Integumentary: Present: clear, warm - Psychiatric Psychiatric: appropriate mood/affect, cooperative - Neurologic Neurologic: CNII-XII intact, moves all extremities HEART Score - HEART Score Troponin: Troponin T < 0.010 ng/mL (0.00-0.029) 06/22/20 18:51 Results - Labs CBC & Chem 7: 06/23/20 03:57 06/23/20 03:57 Labs: Laboratory Last Values WBC 6.4 K/mm3 (4.5-11.0) 06/23/20 03:57 RBC 4.58 M/mm3 (3.65-5.03) 06/23/20 03:57 Hgb 13.1 gm/dl (11.8-15.2) 06/23/20 03:57 Hct 39.2 % (35.5-45.6) 06/23/20 03:57 MCV 86 fl (84-94) 06/23/20 03:57 MCH 29 pg (28-32) 06/23/20 03:57 MCHC 33 % (32-34) 06/23/20 03:57 RDW 14.2 % (13.2-15.2) 06/23/20 03:57 Plt Count 186 K/mm3 (140-440) 06/23/20 03:57 Lymph % (Auto) 18.9 % (13.4-35.0) 06/23/20 03:57 [place] % (Auto) 10.2 % (0.0-7.3) H 06/23/20 03:57 Eos % (Auto) 1.4 % (0.0-4.3) 06/23/20 03:57 Baso % (Auto) 0.7 % (0.0-1.8) 06/23/20 03:57 Lymph # (Auto) 1.2 K/mm3 (1.2-5.4) 06/23/20 03:57 [place] # (Auto) 0.6 K/mm3 (0.0-0.8) 06/23/20 03:57 Eos # (Auto) 0.1 K/mm3 (0.0-0.4) 06/23/20 03:57 Baso # (Auto) 0.0 K/mm3 (0.0-0.1) 06/23/20 03:57 Seg Neutrophils % 68.8 % (40.0-70.0) 06/23/20 03:57 Seg Neutrophils # 4.4 K/mm3 (1.8-7.7) 06/23/20 03:57 PT 11.8 Sec. (12.2-14.9) L 06/22/20 18:51 INR 0.89 (0.87-1.13) 06/22/20 18:51 Sodium 139 mmol/L (137-145) D 06/23/20 03:57 Potassium 4.8 mmol/L (3.6-5.0) 06/23/20 03:57 Chloride 104.6 mmol/L (98-107) 06/23/20 03:57 Carbon Dioxide 26 mmol/L (22-30) D 06/23/20 03:57 Anion Gap 13 mmol/L 06/23/20 03:57 BUN 13 mg/dL (9-20) 06/23/20 03:57 Creatinine 1.2 mg/dL (0.8-1.3) 06/23/20 03:57 Estimated GFR > 60 ml/min 06/23/20 03:57 BUN/Creatinine Ratio 11 % 06/23/20 03:57 Glucose 89 mg/dL (75-100) 06/23/20 03:57 Calcium 8.9 mg/dL (8.4-10.2) 06/23/20 03:57 Magnesium 2.20 mg/dL (1.7-2.3) 06/22/20 18:51 Total Bilirubin < 0.20 mg/dL (0.1-1.2) 06/22/20 19:00 Direct Bilirubin < 0.2 mg/dL (0-0.2) 06/22/20 19:00 Indirect Bilirubin 0.0 mg/dL 06/22/20 19:00 AST 16 units/L (5-40) 06/22/20 19:00 ALT 14 units/L (7-56) 06/22/20 19:00 Alkaline Phosphatase 79 units/L (35-129) 06/22/20 19:00 Troponin T < 0.010 ng/mL (0.00-0.029) 06/22/20 18:51 Total Protein 6.9 g/dL (6.3-8.2) 06/22/20 19:00 Albumin 4.1 g/dL (3.9-5) 06/22/20 19:00 Albumin/Globulin Ratio 1.5 % 06/22/20 19:00 Urine Color Yellow (Yellow) 06/23/20 02:58 Urine Turbidity Clear (Clear) 06/23/20 02:58 Urine pH 6.0 (5.0-7.0) 06/23/20 02:58 Ur Specific [place] 1.011 (1.003-1.030) 06/23/20 02:58 Urine Protein <15 mg/dl mg/dL (Negative) 06/23/20 02:58 Urine Glucose (UA) Neg mg/dL (Negative) 06/23/20 02:58 Urine Ketones Neg mg/dL (Negative) 06/23/20 02:58 Urine Blood Neg (Negative) 06/23/20 02:58 Urine Nitrite Neg (Negative) 06/23/20 02:58 Urine Bilirubin Neg (Negative) 06/23/20 02:58 Urine Urobilinogen < 2.0 mg/dL (<2.0) 06/23/20 02:58 Ur Leukocyte Esterase Neg (Negative) 06/23/20 02:58 Urine WBC (Auto) 2.0 /HPF (0.0-6.0) 06/23/20 02:58 Urine RBC (Auto) 5.0 /HPF (0.0-6.0) 06/23/20 02:58 Urine Mucus Few /HPF 06/23/20 02:58 Urine Opiates Screen Presumptive negative 06/23/20 02:58 Urine Methadone Screen Presumptive negative 06/23/20 02:58 Ur Barbiturates Screen Presumptive negative 06/23/20 02:58 Ur Phencyclidine Scrn Presumptive negative 06/23/20 02:58 Ur Amphetamines Screen Presumptive negative 06/23/20 02:58 U Benzodiazepines Scrn Presumptive negative 06/23/20 02:58 Urine Cocaine Screen Presumptive negative 06/23/20 02:58 U Marijuana (THC) Screen Presumptive negative 06/23/20 02:58 Drugs of Abuse Note Disclamer 06/23/20 02:58 Microbiology: Microbiology 06/23/20 Unknown Nares - Left MRSA Culture - Preliminary [place]/IV: Voiding Method Urinal Active Medications - Current Medications Current Medications: Generic Name Dose Route Start Last Admin Trade Name Freq PRN Reason Stop Dose Admin Al Hydrox/Mg Hydrox/Simethicone 30 ml 06/22/20 23:40 Alum-Mag Hydroxide-Simethicone 983-016-24uv/5ml Oral Liqd 30 Ml PO Q4H PRN Indigestion Amlodipine Besylate 5 mg 06/23/20 10:00 06/24/20 09:45 Amlodipine 5 Mg Tab PO 5 mg DAILY MIGUEL Administration Heparin Sodium (Porcine) 5,000 unit 06/24/20 11:45 06/24/20 21:34 Heparin 5,000 Unit/1 Ml Vial SUB-Q 5,000 unit Q12HR MIGUEL Administration Sodium Chloride 1,000 mls @ 42 mls/hr 06/22/20 23:30 06/24/20 00:46 Nacl 0.9% 1000 Ml IV 42 mls/hr DIRECT MIGUEL Administration Levetiracetam 750 mg 06/24/20 22:00 06/24/20 21:33 Levetiracetam 500 Mg Tab PO 750 mg BID MIGUEL Administration Lorazepam 2 mg 06/23/20 04:28 Lorazepam 2 Mg/Ml Vial IV Q4H PRN Seizures Memantine 10 mg 06/23/20 10:00 06/24/20 21:34 Memantine 10 Mg Tab PO 10 mg Q12HR MIGUEL Administration Senna 17.6 mg 06/22/20 23:40 Sennosides Oral Liqd 8.8 Mg/5 Ml Oral Liqd PO Q12HR PRN Laxative Effect Sertraline HCl 50 mg 06/23/20 10:00 06/24/20 09:45 Sertraline 50 Mg Tab PO 50 mg QDAY MIGUEL Administration Tramadol HCl 25 mg 06/22/20 23:40 Tramadol 50 Mg Tab PO Q4H PRN Pain, Moderate (4-6) Trazodone HCl 50 mg 06/22/20 23:40 Trazodone 50 Mg Tab PO QHS PRN Insomnia
--- NOTE | 2020-06-25 11:13 | Magnetic Resonance Report ---
MR BRAIN WITH AND WITHOUT CONTRAST HISTORY: Seizures COMPARISON: CT head dated 06/22/2020 TECHNIQUE: Multiplanar, multi sequential MRI images of the brain, obtained before and after administr ation of intravenous contrast. CONTRAST: 20 ml of Omniscan FINDINGS: Cerebral and Cerebellar Hemispheres: Mild central and cortical volume loss are again identified. Mode rate T2 signal abnormalities in the white matter are noted and consistent with chronic microvascular ischemic changes. There is no evidence for diffusion restriction, hemorrhage, enhancing mass, chronic infarct or extra-axial fluid collection. Ventricles: Mild prominence of the lateral ventricles is noted due to volume loss. Visualized Orbits: No significant abnormality. Chronic right medial orbital wall fracture is again no jillian. Visualized Paranasal Sinuses: No significant abnormality. Additional Findings: None IMPRESSION: No acute intracranial abnormality is appreciated. No evidence for acute ischemia, hemorrhage or enhan cing mass. Mild diffuse volume loss. Moderate chronic white matter changes. Signer Name: Tomy Sevilla Jr, MD Signed: 06/25/2020 11:08 AM Workstation Name: [id number]
[2020-06-25] MEDS: MEMANTINE 10 MG TAB PO SCH ×2 (11:52→22:10)
[2020-06-25] MEDS: amLODIPine 5 MG TAB PO SCH (11:52)
[2020-06-25] MEDS: SERTRALINE 50 MG TAB PO SCH (11:52)
[2020-06-25] MEDS: SODIUM CHLORIDE 0.9% 1000 ML 1,000 ML IV SCH (11:53)
[2020-06-25] MEDS: levETIRAcetam 500 MG TAB PO SCH ×2 (11:53→22:10)
[2020-06-25] MEDS: HEPARIN 5,000 UNIT/1 ML VIAL SUB-Q SCH ×2 (11:53→22:10)
--- NOTE | 2020-06-26 08:26 | Progress Note ---
Assessment and Plan Assessment and plan: -- New onset seizure Current Visit: Yes Status: Acute Plan to address problem: IV Keppra for now to be transitioned to oral Keppra Seizure precautions Neurology following Follow neuro work-up, MRI and EEG -- Acute encephalopathy Current Visit: Yes Status: Acute Plan to address problem: Secondary to seizures Mild improvement, patient is more alert and awake CT head without contrast; no acute abnormality, volume loss, micro vascular ischemic changes MRI; no acute abnormality noted. Volume loss PT, OT recommend placement acute vs subacute/SNF placement --Hyponatremia Current Visit: Yes Status: Acute Plan to address problem: Significant improvement , continue IV fluids Follow electrolytes -- DVT prophylaxis Current Visit: Yes Status: Acute Plan to address problem: On heparin and GI prophylaxis -- Discharge planning issues Current Visit: Yes Status: Acute Plan to address problem: Patient is medically cleared for discharge Placement issues Case management to be informed PT recommend subacute rehab placement OT recommend acute rehab placement Follow neuro work-up, optimize medications Discharge when medically stable and cleared by neurology Plan of care reviewed with the patient and his nurse I also discussed with the case management 06/25/2020; follow neuro work-up Seizure precautions PT/OT recommend subacute/acute rehab placement When medically stable 06/26/2020 patient medically stable for discharge and; SNF/acute/subacute rehab placement History Interval history: I have seen and examined the patient at the bedside this morning Patient's chart and medications reviewed Patient is having his breakfast No new episodes of seizure, no new complaints awaiting placement Acute /subacute rehab versus SNF Patient is medically stable Vital signs noted Hospitalist Physical - Constitutional Vitals: Temp Pulse Resp BP Pulse Ox 98.7 F 60 26 H 158/62 96 06/26/20 07:46 06/26/20 07:46 06/26/20 07:46 06/26/20 07:46 06/26/20 07:46 General appearance: Present: no acute distress, well-nourished - EENT Eyes: Present: PERRL, EOM intact - Neck Neck: Present: supple, normal ROM - Respiratory Respiratory effort: normal Respiratory: bilateral: diminished, negative: rales, rhonchi, wheezing - Cardiovascular Rhythm: regular Heart Sounds: Present: S1 & S2 - Extremities Extremities: no ischemia, No edema - Abdominal General gastrointestinal: soft, non-tender, non-distended, normal bowel sounds - Integumentary Integumentary: Present: clear, warm - Psychiatric Psychiatric: appropriate mood/affect, cooperative - Neurologic Neurologic: CNII-XII intact, moves all extremities HEART Score - HEART Score Troponin: Troponin T < 0.010 ng/mL (0.00-0.029) 06/22/20 18:51 Results - Labs CBC & Chem 7: 06/23/20 03:57 06/23/20 03:57 Labs: Laboratory Last Values WBC 6.4 K/mm3 (4.5-11.0) 06/23/20 03:57 RBC 4.58 M/mm3 (3.65-5.03) 06/23/20 03:57 Hgb 13.1 gm/dl (11.8-15.2) 06/23/20 03:57 Hct 39.2 % (35.5-45.6) 06/23/20 03:57 MCV 86 fl (84-94) 06/23/20 03:57 MCH 29 pg (28-32) 06/23/20 03:57 MCHC 33 % (32-34) 06/23/20 03:57 RDW 14.2 % (13.2-15.2) 06/23/20 03:57 Plt Count 186 K/mm3 (140-440) 06/23/20 03:57 Lymph % (Auto) 18.9 % (13.4-35.0) 06/23/20 03:57 Caldwell % (Auto) 10.2 % (0.0-7.3) H 06/23/20 03:57 Eos % (Auto) 1.4 % (0.0-4.3) 06/23/20 03:57 Baso % (Auto) 0.7 % (0.0-1.8) 06/23/20 03:57 Lymph # (Auto) 1.2 K/mm3 (1.2-5.4) 06/23/20 03:57 Caldwell # (Auto) 0.6 K/mm3 (0.0-0.8) 06/23/20 03:57 Eos # (Auto) 0.1 K/mm3 (0.0-0.4) 06/23/20 03:57 Baso # (Auto) 0.0 K/mm3 (0.0-0.1) 06/23/20 03:57 Seg Neutrophils % 68.8 % (40.0-70.0) 06/23/20 03:57 Seg Neutrophils # 4.4 K/mm3 (1.8-7.7) 06/23/20 03:57 PT 11.8 Sec. (12.2-14.9) L 06/22/20 18:51 INR 0.89 (0.87-1.13) 06/22/20 18:51 Sodium 139 mmol/L (137-145) D 06/23/20 03:57 Potassium 4.8 mmol/L (3.6-5.0) 06/23/20 03:57 Chloride 104.6 mmol/L (98-107) 06/23/20 03:57 Carbon Dioxide 26 mmol/L (22-30) D 06/23/20 03:57 Anion Gap 13 mmol/L 06/23/20 03:57 BUN 13 mg/dL (9-20) 06/23/20 03:57 Creatinine 1.2 mg/dL (0.8-1.3) 06/23/20 03:57 Estimated GFR > 60 ml/min 06/23/20 03:57 BUN/Creatinine Ratio 11 % 06/23/20 03:57 Glucose 89 mg/dL (75-100) 06/23/20 03:57 Calcium 8.9 mg/dL (8.4-10.2) 06/23/20 03:57 Magnesium 2.20 mg/dL (1.7-2.3) 06/22/20 18:51 Total Bilirubin < 0.20 mg/dL (0.1-1.2) 06/22/20 19:00 Direct Bilirubin < 0.2 mg/dL (0-0.2) 06/22/20 19:00 Indirect Bilirubin 0.0 mg/dL 06/22/20 19:00 AST 16 units/L (5-40) 06/22/20 19:00 ALT 14 units/L (7-56) 06/22/20 19:00 Alkaline Phosphatase 79 units/L (35-129) 06/22/20 19:00 Troponin T < 0.010 ng/mL (0.00-0.029) 06/22/20 18:51 Total Protein 6.9 g/dL (6.3-8.2) 06/22/20 19:00 Albumin 4.1 g/dL (3.9-5) 06/22/20 19:00 Albumin/Globulin Ratio 1.5 % 06/22/20 19:00 Urine Color Yellow (Yellow) 06/23/20 02:58 Urine Turbidity Clear (Clear) 06/23/20 02:58 Urine pH 6.0 (5.0-7.0) 06/23/20 02:58 Ur Specific [place] 1.011 (1.003-1.030) 06/23/20 02:58 Urine Protein <15 mg/dl mg/dL (Negative) 06/23/20 02:58 Urine Glucose (UA) Neg mg/dL (Negative) 06/23/20 02:58 Urine Ketones Neg mg/dL (Negative) 06/23/20 02:58 Urine Blood Neg (Negative) 06/23/20 02:58 Urine Nitrite Neg (Negative) 06/23/20 02:58 Urine Bilirubin Neg (Negative) 06/23/20 02:58 Urine Urobilinogen < 2.0 mg/dL (<2.0) 06/23/20 02:58 Ur Leukocyte Esterase Neg (Negative) 06/23/20 02:58 Urine WBC (Auto) 2.0 /HPF (0.0-6.0) 06/23/20 02:58 Urine RBC (Auto) 5.0 /HPF (0.0-6.0) 06/23/20 02:58 Urine Mucus Few /HPF 06/23/20 02:58 Urine Opiates Screen Presumptive negative 06/23/20 02:58 Urine Methadone Screen Presumptive negative 06/23/20 02:58 Ur Barbiturates Screen Presumptive negative 06/23/20 02:58 Ur Phencyclidine Scrn Presumptive negative 06/23/20 02:58 Ur Amphetamines Screen Presumptive negative 06/23/20 02:58 U Benzodiazepines Scrn Presumptive negative 06/23/20 02:58 Urine Cocaine Screen Presumptive negative 06/23/20 02:58 U Marijuana (THC) Screen Presumptive negative 06/23/20 02:58 Drugs of Abuse Note Disclamer 06/23/20 02:58 Aponte/IV: Voiding Method Urinal Active Medications - Current Medications Current Medications: Generic Name Dose Route Start Last Admin Trade Name Freq PRN Reason Stop Dose Admin Al Hydrox/Mg Hydrox/Simethicone 30 ml 06/22/20 23:40 Alum-Mag Hydroxide-Simethicone 100-497-79nw/5ml Oral Liqd 30 Ml PO Q4H PRN Indigestion Amlodipine Besylate 5 mg 06/23/20 10:00 06/25/20 11:52 Amlodipine 5 Mg Tab PO 5 mg DAILY MIGUEL Administration Heparin Sodium (Porcine) 5,000 unit 06/24/20 11:45 06/25/20 22:10 Heparin 5,000 Unit/1 Ml Vial SUB-Q 5,000 unit Q12HR MIGUEL Administration Sodium Chloride 1,000 mls @ 42 mls/hr 06/22/20 23:30 06/25/20 11:53 Nacl 0.9% 1000 Ml IV 42 mls/hr DIRECT MIGUEL Administration Levetiracetam 750 mg 06/24/20 22:00 06/25/20 22:10 Levetiracetam 500 Mg Tab PO 750 mg BID MIGUEL Administration Lorazepam 2 mg 06/23/20 04:28 Lorazepam 2 Mg/Ml Vial IV Q4H PRN Seizures Memantine 10 mg 06/23/20 10:00 06/25/20 22:10 Memantine 10 Mg Tab PO 10 mg Q12HR MIGUEL Administration Senna 17.6 mg 06/22/20 23:40 Sennosides Oral Liqd 8.8 Mg/5 Ml Oral Liqd PO Q12HR PRN Laxative Effect Sertraline HCl 50 mg 06/23/20 10:00 06/25/20 11:52 Sertraline 50 Mg Tab PO 50 mg QDAY MIGUEL Administration Tramadol HCl 25 mg 06/22/20 23:40 Tramadol 50 Mg Tab PO Q4H PRN Pain, Moderate (4-6) Trazodone HCl 50 mg 06/22/20 23:40 Trazodone 50 Mg Tab PO QHS PRN Insomnia
[2020-06-26] MEDS: amLODIPine 5 MG TAB PO SCH (08:59)
[2020-06-26] MEDS: MEMANTINE 10 MG TAB PO SCH (08:59)
[2020-06-26] MEDS: SERTRALINE 50 MG TAB PO SCH (08:59)
[2020-06-26] MEDS: levETIRAcetam 500 MG TAB PO SCH (08:59)
[2020-06-26] MEDS: HEPARIN 5,000 UNIT/1 ML VIAL SUB-Q SCH (09:00)
--- NOTE | 2020-06-26 15:12 | Discharge Summary ---
Providers - Providers Date of Admission: 06/22/20 22:29 Date of discharge: 06/26/20 Attending physician: TOVA MCFARLANE 06/22/20 23:51 Consult to Physician [CONS] Routine Comment: Consulting Provider: EBONI LEIVA Physician Instructions: Reason For Exam: seizure-new onset 06/24/20 11:00 Physical Therapy Evaluation and Treat [CONS] Routine Comment: Reason For Exam: physical 06/24/20 11:01 Occupational Therapy Evaluate and Treat [CONS] Routine Comment: Reason For Exam: debility Primary care physician: MANAGER PRIMARY Hospitalization Reason for admission: New onset witnessed seizure/syncope Condition: Stable Pertinent studies: CT head; central greater than cortical parenchymal volume loss advanced microvascular ischemic changes no acute intracranial abnormality noted. MRI brain; no acute intracranial abnormalities appreciated no evidence of acute ischemia hemorrhage or enhancing mass mild diffuse volume loss moderate chronic white matter changes patient feels slightly better no other complaints vital signs noted Hospital course: 74-year-old male patient with significant past medical history of schizophrenia from a skilled nursing was admitted through emergency room with history of witnessed seizure and syncope, patient did not have any past medical history of seizures Patient was admitted symptomatically managed placed on seizure precautions started on antiepileptic medications. Subsequently evaluated by neurologist, recommended Keppra 500 mg twice a day, neuro work-up was negative for acute abnormality. EEG pending Patient will follow up with outpatient neurologist at which time EEG will be done, and neurologist will adjust management as needed Patient received physical therapy occupational therapy, both PT and OT recommended subacute versus SNF placement,Case management have set up subacute rehab placement Today patient is comfortable no new episodes of seizure Vital signs stable physical examination unremarkable Advised not to drive for 6 months or cleared by PMD or neurology Stable at discharge, advised to follow primary care physician and neurologist per schedule Patient was strongly advised not to drive or operate heavy machinery Until cleared by neurology/PMD Discharge diagnosis; --Witnessed seizure --Syncope --Acute metabolic encephalopathy --Hypertension --Dementia --Mild hyponatremia/ resolved --Ongoing tobacco use Disposition: DC/[place]-03 SNF [facility] C[facility] Final Discharge Diagnosis (Prints w/discharge instructions): --Witnessed seizure. --Syncope. --Acute metabolic encephalopathy. --Hypertension. --Dementia. --Mild hyponatremia/ resolved. --Ongoing tobacco use Time spent for discharge: 35 min Core Measure Documentation - Palliative Care Palliative Care/ Comfort Measures: Not Applicable - Core Measures Any of the following diagnoses?: none Exam - Constitutional Vitals: Temp Pulse Resp BP Pulse Ox 98.4 F 64 18 157/61 95 06/26/20 11:22 06/26/20 11:23 06/26/20 11:22 06/26/20 11:22 06/26/20 11:23 General appearance: Present: no acute distress, well-nourished - EENT Eyes: Present: PERRL, EOM intact - Neck Neck: Present: supple, normal ROM - Respiratory Respiratory effort: normal Respiratory: bilateral: diminished, negative: rales, rhonchi, wheezing - Cardiovascular Rhythm: regular Heart Sounds: Present: S1 & S2 - Extremities Extremities: no ischemia, No edema - Abdominal General gastrointestinal: Present: soft, non-tender, non-distended, normal bowel sounds - Integumentary Integumentary: Present: clear, warm - Musculoskeletal Musculoskeletal: strength equal bilaterally - Psychiatric Psychiatric: appropriate mood/affect, cooperative - Neurologic Neurologic: CNII-XII intact, moves all extremities Plan Activity: advance as tolerated, no driving until cleared by PCP, fall precautions, other (Seizure precautions) Diet: regular Special Instructions: smoking cessation, physical therapy, occupational therapy Additional Instructions: Seizure precautions. Fall precautions. Do not drive until cleared by neurology. Follow-up with private neurologist, outpatient EEG Plan of Treatment: Patient was admitted due to unspecified convulsions, seizures, hypo-osmolality and hyponatremia. Patient lived in skilled nursing. Patient was independent with ADL's and no DME. PCP Dr Gagan Palafox, [facility]. patient's sister Mony said she was caregiver for patient until she was incapable to care for patient. Mony said she was not satisfied with skilled nursing where patient was living. She said she had asked for placement in personal shelter. Mony is now requesting that patient be placed in long term and she does not have preference of facility. [employer] will continue following to facilitate any transition needs. Follow up with: PRIMARY MD VALERIO [Primary Care Provider] - 3-5 Days MAIKEL EASLEY MD [Staff Physician] - 7 Days Prescriptions: levETIRAcetam [Keppra TAB] 500 mg PO BID #60 tablet
[2020-06-26] MEDS: SODIUM CHLORIDE 0.9% 1000 ML 1,000 ML IV SCH (15:30)
[2020-06-26 16:17] VITALS: BP 144/70
== END 2020-06-26 18:26 | DRG 101 ==
LOC: ED 18:31 → 4A 22:29
PROVIDERS: ADMIT Internal Medicine Geriatric Medicine; ATTEND Internal Medicine
DX: R56.9 Unspecified convulsions (principal); E87.1 Hypo-osmolality and hyponatremia; F20.9 Schizophrenia, unspecified; I10 Essential (primary) hypertension; E78.5 Hyperlipidemia, unspecified; F03.90 Unspecified dementia, unspecified severity, without behavioral disturbance, psychotic disturbance, mood disturbance, and anxiety; Z20.822 Contact with and (suspected) exposure to COVID-19; F17.200 Nicotine dependence, unspecified, uncomplicated; Z79.899 Other long term (current) drug therapy; Z82.49 Family history of ischemic heart disease and other diseases of the circulatory system
CPT/HCPCS: 36415; 70450; 70553; 80048; 80076; 80307; 81001; 83735; 84484; 85025; 85610; 87116; 93005; 96374; 96375; 99406; G0378; A9575; J1644; J1953; J7030; U0003

== ENCOUNTER 2021-05-24 15:56 | Emergency (ER) | payer MEDICARE ==
[2021-05-24] MEDS ORDERED: SODIUM CHLORIDE 0.9% 1000 ML 1,000 ML IV ONE (17:18)
[2021-05-24] MEDS ORDERED: levETIRAcetam 1000 MG/NS 0.75% 1,000 MG/100 ML BAG IV ONE (17:18)
--- NOTE | 2021-05-24 17:20 | Emergency Department Report ---
ED Syncope HPI - General Chief Complaint: Syncope Stated Complaint: SYNCOPAL EPISODE Time Seen by Provider: 05/24/21 17:11 Source: patient, family, EMS - History of Present Illness Initial Comments: Patient is 75 years old male with history of schizophrenia and seizure. Patient is on Keppra 500 mg twice daily. Patient brought to the emergency room from home for evaluation of 1 episode of syncope witnessed by his family. Patient stated that he has brief loss of consciousness approximately like 10seconds. Patient stated that he is back to normal. No jerking movement observed by his family. Patient admitted that he has been drinking alcohol this morning. Patient with a strong smell of alcohol 2. Patient denied any headache, neck pain, weakness numbness or tingling sensation. No chest pain or shortness of breath. Timing/Prior Episodes: single episode today Precipitating Factors: Positive: lightheadedness Loss of Consciousness: brief (seconds) Current Symptoms: back to normal - Related Data Allergies/Adverse Reactions: Allergies No Known Allergies Allergy (Verified 05/24/21 16:43) Home Medications: Ambulatory Orders Memantine 10 mg PO DAILY 06/22/20 Sertraline [Zoloft] 50 mg PO QDAY 06/22/20 amLODIPine 5 mg PO DAILY 06/22/20 levETIRAcetam [Keppra TAB] 500 mg PO BID #60 tablet 06/26/20 traZODone [Desyrel] 50 mg PO QHS PRN tablet 06/26/20 ED Review of Systems ROS: Stated complaint: SYNCOPAL EPISODE Other details as noted in HPI Comment: All other systems reviewed and negative Constitutional: denies: chills, fever Respiratory: denies: cough, shortness of breath, SOB with exertion, SOB at rest Cardiovascular: denies: chest pain, palpitations Gastrointestinal: denies: abdominal pain, nausea, vomiting Musculoskeletal: denies: back pain Neurological: denies: headache, weakness, numbness, paresthesias, confusion ED Past Medical Hx - Past Medical History Previous Medical History?: Yes Hx Hypertension: Yes Hx Seizures: Yes (NEW ONSET.) Hx Psychiatric Treatment: Yes (schizophrenia) Hx Dementia: Yes - Social History Smoking Status: Current Every Day Smoker - Medications Home Medications: Home Medications Medication Instructions Recorded Confirmed Last Taken Type Memantine 10 mg PO DAILY 06/22/20 06/26/20 Unknown History Sertraline [Zoloft] 50 mg PO QDAY 06/22/20 06/22/20 Unknown History amLODIPine 5 mg PO DAILY 06/22/20 06/22/20 Unknown History levETIRAcetam [Keppra TAB] 500 mg PO BID #60 tablet 06/26/20 Unknown Rx traZODone [Desyrel] 50 mg PO QHS PRN tablet 06/26/20 Unknown Rx ED Physical Exam - General Limitations: No Limitations General appearance: alert, in no apparent distress - Head Head exam: Present: atraumatic, normocephalic, normal inspection - Eye Eye exam: Present: normal appearance, PERRL - ENT ENT exam: Present: normal exam, normal orophraynx, mucous membranes moist - Neck Neck exam: Present: normal inspection, full ROM. Absent: tenderness, meningismus - Respiratory Respiratory exam: Present: normal lung sounds bilaterally - Cardiovascular Cardiovascular Exam: Present: regular rate, normal rhythm, normal heart sounds - GI/Abdominal GI/Abdominal exam: Present: soft, normal bowel sounds. Absent: distended, tende rness, guarding, rebound, rigid, organomegaly, mass, bruit, pulsatile mass, hernia - Extremities Exam Extremities exam: Present: normal inspection, full ROM. Absent: tenderness - Back Exam Back exam: Present: normal inspection, full ROM. Absent: CVA tenderness (R), CVA tenderness (L) - Neurological Exam Neurological exam: Present: alert, oriented X3, CN II-XII intact, normal gait, reflexes normal. Absent: motor sensory deficit - Psychiatric Psychiatric exam: Present: normal mood - Skin Skin exam: Present: warm, intact, normal color ED Course Vital Signs 05/24/21 05/24/21 05/24/21 16:39 17:21 17:28 Temperature 98.3 F 97.9 F Pulse Rate 62 67 Respiratory 16 16 15 Rate Blood Pressure 118/64 114/57 [Left] O2 Sat by Pulse 100 95 95 Oximetry ED Medical Decision Making - Lab Data Result diagrams: 05/24/21 17:45 05/24/21 17:45 - Medical Decision Making Patient is 75 years old male with history of schizophrenia and seizure. Patient is on Keppra 500 mg twice daily. Patient brought to the emergency room from home for evaluation of 1 episode of syncope witnessed by his family. Patient stated that he has brief loss of consciousness approximately like 10seconds. Patient stated that he is back to normal. No jerking movement observed by his family. Patient admitted that he has been drinking alcohol this morning. Agnes ent with a strong smell of alcohol 2. Patient denied any headache, neck pain, weakness numbness or tingling sensation. No chest pain or shortness of breath. Patient remained stable in the ER sleeping with no difficulties. Patient alcohol level slightly increased 0.1. Labs reviewed and is unremarkable CT brain is negative for acute finding. Vital signs remained stable in the ER. Patient received normal saline and Keppra. Patient is alert, oriented x3 and stated that he want to go home. Patient will be discharged to follow-up with his primary care physician in the next 2 to 3 days. Critical care attestation.: If time is entered above; I have spent that time in minutes in the direct care of this critically ill patient, excluding procedure time. ED Disposition Clinical Impression: Syncope, Alcohol intoxication Disposition: 01 HOME / SELF CARE / HOMELESS Is pt being admited?: No Condition: Stable Instructions: Syncope (ED), Alcohol Intoxication, Syncope Referrals: PRIMARY CARE, [Primary Care Provider] - 3-5 Days
[2021-05-24 18:23] LABS: Basophils % (Auto) 0.9 % (0.0-1.8); Eosinophils # (Auto) 0.1 K/mm3 (0.0-0.4); Eosinophils % (Auto) 1.3 % (0.0-4.3); Hematocrit 37.6 % (35.5-45.6); Hemoglobin 12.8 gm/dl (11.8-15.2); Lymphocytes # (Auto) 1.1 K/mm3 (1.2-5.4); Lymphocytes % (Auto) 24.4 % (13.4-35.0); Mean Corpuscular HGB Conc 34 % (32-34); Mean Corpuscular Volume 85 fl (84-94); Monocytes # (Auto) 0.4 K/mm3 (0.0-0.8); Monocytes % (Auto) 9.9 % (0.0-7.3); Platelet Count 199 K/mm3 (140-440); Red Blood Count 4.44 M/mm3 (3.65-5.03); Red Cell Distribution Width 15.6 % (13.2-15.2)
--- NOTE | 2021-05-24 18:28 | Cat Scan Report ---
CT head/brain wo con INDICATION / CLINICAL INFORMATION: 75 years Male; Syncope. TECHNIQUE: Routine CT head without contrast. All CT scans at this location are performed using CT dos e reduction for ALARA by means of automated exposure control. COMPARISON: 06/22/2020 FINDINGS: BRAIN / INTRACRANIAL CONTENTS: Prominent ventricular system seen, which may be related to central atr ophy. Normal pressure hydrocephalus might be consideration as well. Similar type appearance seen on p rior. Otherwise, no acute hemorrhage, mass effect, midline shift, or acute, large territorial infarct. No signs of significant atrophy or chronic infarct. There are moderate, somewhat confluent areas of decreased attenuation in the white matter of the cere bral hemispheres. These are nonspecific findings and may be related to microangiopathy (hypertension, diabetes, atherosclerosis), given the patient's age. Mild pontine disease may be present. CRANIOCERVICAL JUNCTION: No significant abnormality. ORBITS: No significant abnormality of visualized orbits. SINUSES / MASTOIDS: Mild mucosal thickening in the mastoids. There is a focal dehiscence of lamina papyracea on the right. ADDITIONAL FINDINGS: Atherosclerotic disease is seen in the anterior circulation. IMPRESSION: 1. Prominent ventricular system as described above. 2. Otherwise, no focal mass, hemorrhage, or acute, large territorial infarct. Signer Name: Brian Alegre MD, III Signed: 05/24/2021 6:23 PM Workstation Name: [id number]
[2021-05-24 18:34] LABS: BUN/Creatinine Ratio 9; Blood Urea Nitrogen 8 mg/dL (9-20); Calcium 9.2 mg/dL (8.4-10.2); Hemolysis Index 17
[2021-05-24 22:52] VITALS: BP 142/67
== END 2021-05-25 00:30 | disposition home or self-care (01) ==
LOC: ED 15:56
DX: F10.129 Alcohol abuse with intoxication, unspecified (principal); R55 Syncope and collapse; R56.9 Unspecified convulsions; I10 Essential (primary) hypertension; F20.9 Schizophrenia, unspecified; F03.90 Unspecified dementia, unspecified severity, without behavioral disturbance, psychotic disturbance, mood disturbance, and anxiety; F17.200 Nicotine dependence, unspecified, uncomplicated
CPT/HCPCS: 36415; 70450; 80048; 84484; 85025; 96365; 99284; J1953; J7030; 80320; Q0162; G0480